=== PATIENT | male | born 2000 | race Two or more races ===

== ENCOUNTER 2022-06-08 21:00 | Emergency (ER) | payer SELFPAY ==
[~2022-06-08] VITALS: Ht 170.2 cm; Wt 54.4 kg
[2022-06-08 21:29] VITALS: BP 135/64
--- NOTE | 2022-06-08 21:31 | NUR ---
BIBFRIEND. VOMMTING, THINKS HE ASPIRATED FOOD BECAUSE HE IS COUGHING OUT FOOD. PATIENT ALERT AND ORIENTED X3. AMBULATORY WITH NON LABORED BREATHING IN BED 06 ON MONITOR AND POX, AWAITING MD MARTINO.
--- NOTE | 2022-06-08 23:24 | NUR ---
Patient left without being seen by ER Physician
--- NOTE | 2022-06-08 23:24 | NUR ---
Linda coulter in [facility] - 06/08/22 at 2350 by GAURI Patient discharged to home in stable condition. Written and verbal after care instructions given. Patient verbalizes understanding of instruction.
== END 2022-06-08 23:51 | disposition left against medical advice (07) ==
LOC: ER 21:21
DX: Z53.21 Procedure and treatment not carried out due to patient leaving prior to being seen by health care provider (principal)